=== PATIENT | male | born 1965 ===

== ENCOUNTER → 2019-04-12 | Outpatient (CLI) | payer OTHER ==
[~2019-04-12] VITALS: Ht 182.9 cm; Wt 102.1 kg
[~2019-04-12] MED LIST: ADVIL PM CAPLE1 EACH PO; ADVIL PM LIQUI1 EACH; CBD oil PO
--- NOTE | ~2019-04-12 | HPC ---
[facility] [place] [address] PAIN MANAGEMENT CONSULTATION Name: JOSÉ MIGUEL REGAN Room #: REG RIMA AhmadiFabi#: [id number] Admission: 04/12/19 Attend Phys: Nirmal Collazo MD Discharge: Date of : 61 Report #: [id number] THIS REPORT FOR: //name// CC: FRANCISCO J Collazo DATE OF SERVICE: 04/12/2019 CHIEF COMPLAINT: Cervical pain with radiation into the right arm. HISTORY OF PRESENT ILLNESS: This is a pleasant 53-year-old. Dr. Sarkar was asked me to see today for cervical radiculopathy. He describes the pain in his own words as a pinched nerve in the neck. This results in right-sided pain of his neck, shoulder and numbness into the right arm. Pain has been present for about a year. It progressively worsened over the course of the spring and early summer. He was started on meloxicam. He saw Dr. Queen, who recommended physical therapy. It initially helped and he was doing better, doing exercises on his own at home. He then had to discontinue the physical therapy oversight, but was getting along pretty well. In early March at a judaism function, he was loading pumpkins from a truck and began experiencing pain again and it is now worse and bothers him on a daily basis. He scores it as a 5/10 on a day-to-day activity and with increased activity the pain is a 7/10. It is a constant, aching, crushing sensation and it radiates from his neck through his arm into the forearm following the C5-C6 distribution. Dr. Sarkar ordered an MRI scan, which was performed on 03/01/2019. I reviewed the report, but did not have the images. The report suggests that there is a right eccentric disk bulge/protrusion at C4-C5 and C5-C6 with mild right eccentric canal narrowing and moderate right foraminal narrowing at C4-C5 and C5-C6. This would be consistent and concordant with his cervical radicular symptoms. MEDICATIONS: None. PAST MEDICAL HISTORY: Negative for health issues. He has had some orthopedic surgeries, bone spur on his knee in 1979 and a torn meniscus in 2004. In the distant past, he had a tonsillectomy in 1974. REVIEW OF SYSTEMS: Negative other than symptoms related to the history of present illness. SOCIAL HISTORY: Denies tobacco, drinks alcohol, 4-5 beverages per week in a social setting. He does not use any illicit drugs or marijuana. 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 He has children, grandchildren and his daughter is with twins. 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 [employer] [address] [address] PAIN MANAGEMENT CONSULTATION Name: JOSÉ MIGUEL REGAN Room #: REG RIMA Beck#: [id number] Admission: 04/12/19 Attend Phys: Nirmal Collazo MD Discharge: Date of : 61 Report #: [id number] pain score is highest for enjoyment of life 7/10. Total score is 23/70. PHYSICAL EXAMINATION: GENERAL: He is a very pleasant, outgoing 53-year-old, he is 6 feet 1 inches, 225 pounds with a BMI of 30.5. VITAL SIGNS: Blood pressure is 133/95, heart rate 70, respirations 16, O2 sat 97. Pain intensity 4/10. Moves independently from sitting to standing position, ambulates without any antalgic features. HEENT: Normal. NECK: Supple. He has some pain with neck extension. CHEST: Clear to auscultation. CARDIAC: Rhythm is regular with no audible murmur. MUSCULOSKELETAL: Examination of the musculoskeletal system reveals cervical range of motion has noted to be fairly normal. No restrictions by pain or muscle spasm. He has some myofascial tender points within the cervical spine posteriorly on the right. Range of motion of the shoulders is good. Minimal tenderness. Deep tendon reflexes are diminished at the biceps on the right in comparison to the left, triceps and brachioradialis reflexes are normal. Deep tendon reflexes in lower extremity are also normal. Sensation exam reveals some mild numbness throughout the upper part of the arm in the C5-C6 distribution. I could not ascertain any focal weakness and muscle testing. IMPRESSION: Cervical radiculopathy related to MRI evidence of right cervical disk protrusion, likely causing some irritation of nerve roots in the lateral recess. RECOMMENDATION: I think he is an excellent candidate for an epidural steroid injection and referred him for preauthorization. We will bring him back to the clinic at our earliest mutual convenience for the epidural injection. We talked about long-term prognosis, which I think is favorable, I think that this will continue to improve over time. The epidural may certainly play some role in reducing his pain and improving his day-to-day function by eliminating the pain generator. Followup visit planned within the next week for cervical epidural injection. By: [id number] Nirmal Collazo MD /nt
[2019-04-12 14:01] VITALS: BP 133/95
--- NOTE | 2019-04-12 14:26 | NUR ---
Pain Clinic Assessment: 1. History of Osteoarthritis: CERVICAL SPINE History of Rheumatoid Arthritis: Not Applicable 2. Height: 6 ft. 1 in. 182.9 cm. Weight: 225.0 lb. oz. 102.060 kg. Patient's BMI: 30.5 3. Vital Signs: BP: 133/95 Pulse: 70 Resp: 16 Temp: 02 Sat: 97 ECG Mon: 4. Pain Intensity: 4 5. Fall Risk: Dizziness: N Needs help standing or walking: N Fallen in the last 3 months: N Fall risk comments: 6. Patient on Blood Thinner: None 7. History of Hypertension: N 8. Opioid Therapy greater than 6 weeks: Opiate Contract Signed: 9. Risk Assessment Tool Provided: 10. Functional Assessment Tool: 11. Recreational Drug Use: Never Drug Type: Tobacco Use: Never Smoker Tobacco Type: Amount or Packs/day: How Many Years: Alcohol Use: Yes Frequency: Weekly Quant: 5 DRINKS
== END ==
LOC: PAIN 06:53
DX: M54.12 Radiculopathy, cervical region (principal); Z79.899 Other long term (current) drug therapy; Z88.8 Allergy status to other drugs, medicaments and biological substances

== ENCOUNTER → 2019-04-23 | Outpatient (CLI) | payer OTHER ==
[~2019-04-23] VITALS: Ht 185.4 cm; Wt 106.2 kg
[2019-04-23 08:15] VITALS: BP 139/94
--- NOTE | 2019-04-23 08:25 | NUR ---
Pain Clinic Assessment: 1. History of Osteoarthritis: CERVICAL SPINE History of Rheumatoid Arthritis: Not Applicable 2. Height: 6 ft. 1 in. 185.4 cm. Weight: 234.2 lb. oz. 106.233 kg. Patient's BMI: 30.9 3. Vital Signs: BP: 139/94 Pulse: 85 Resp: 18 Temp: 02 Sat: 97 ECG Mon: 4. Pain Intensity: 2-3 5. Fall Risk: Dizziness: N Needs help standing or walking: N Fallen in the last 3 months: N Fall risk comments: 6. Patient on Blood Thinner: None 7. History of Hypertension: N 8. Opioid Therapy greater than 6 weeks: N Opiate Contract Signed: 9. Risk Assessment Tool Provided: 10. Functional Assessment Tool: 11. Recreational Drug Use: Never Drug Type: Tobacco Use: Never Smoker Tobacco Type: Amount or Packs/day: How Many Years: Alcohol Use: Yes Frequency: Weekly Quant: 5/week
--- NOTE | 2019-04-30 12:21 | HPC ---
[facility] [place] [address] PAIN MANAGEMENT CONSULTATION Name: JOSÉ MIGUEL REGAN Room #: REG RIMA Galdino.#: [id number] Admission: 04/23/19 Attend Phys: Nirmal Collazo MD Discharge: Date of : 61 Report #: [id number] THIS REPORT FOR: //name// CC: FRANCISCO J Collazo PROCEDURE: Cervical epidural injection under fluoroscopic guidance. DIAGNOSES: Cervical radiculopathy, right C6-C7 distribution. INDICATION FOR PROCEDURE: The patient was seen 1 week ago. He has classic symptoms of cervical radiculopathy. He has attempted conservative measures without success and is here today for a cervical epidural injection discussed. Potential risks and benefits discussed. He is anxious to proceed. PROCEDURE PERFORMED: Cervical epidural steroid injection, C7-T1. DESCRIPTION OF PROCEDURE: After informed consent, he was taken to the fluoroscopic suite, placed prone, skin prepped with ChloraPrep. Skin anesthetized over C6-C7 initially. A 20-gauge Tuohy epidural needle was advanced towards the epidural space using saline for loss of resistance. I was encountering softness throughout the entire procedure and the needle was at significant depth before I decided to move to C7-T1. I was concerned that I had not encountered the ligamentum flavum by nearly 3 inches in this relatively slender gentleman. Dye had been injected a couple of times. We were posterior to the epidural space. I felt it safer to move down 1 level. Skin was then anesthetized and the 20-gauge Tuohy epidural needle was advanced into the epidural space using loss of resistance at that level. It was deeper than anticipated. I injected 0.25 mL of Omnipaque and an excellent epidurogram was achieved, extending cephalad and bilaterally. I then injected 3 mL of 0.5% lidocaine and 60 mg of triamcinolone. He tolerated the procedure well. He was in the recovery room at time of dictation. There were no apparent complications. Followup visit is planned as needed. <ELECTRONICALLY SIGNED> By: Nirmal Collazo MD 04/30/19 1221 [id number] Nirmal Collazo MD /nt
== END | disposition home or self-care (01) ==
LOC: PAIN 06:46
DX: M54.12 Radiculopathy, cervical region (principal)

== ENCOUNTER → 2019-06-28 | Outpatient (CLI) | payer OTHER | LOC: CAT 08:10 | DX: Z13.6 Encounter for screening for cardiovascular disorders (principal); I25.10 Atherosclerotic heart disease of native coronary artery without angina pectoris; E78.00 Pure hypercholesterolemia, unspecified ==

== ENCOUNTER → 2019-07-13 | Outpatient (CLI) | payer BC, OTHER | LOC: SJCVCIMAG 09:28 | DX: I36.1 Nonrheumatic tricuspid (valve) insufficiency (principal); I10 Essential (primary) hypertension; E78.5 Hyperlipidemia, unspecified ==

== ENCOUNTER → 2019-10-04 | Outpatient (CLI) | payer BC, OTHER ==
[~2019-10-04] VITALS: Ht 185.4 cm; Wt 98.1 kg
[~2019-10-04] MED LIST changes: +ADVIL200 M3 PO; +CRESTOR10 MG PO; +IRBESARTAN300 MG PO; +MELATONIN5 MG SUBLING
[2019-10-04 13:10] VITALS: BP 113/84
--- NOTE | 2019-10-04 13:44 | NUR ---
Pain Clinic Assessment: 1. History of Osteoarthritis: CERVICAL SPINE History of Rheumatoid Arthritis: Not Applicable 2. Height: 6 ft. 1 in. 185.4 cm. Weight: 216.2 lb. oz. 98.068 kg. Patient's BMI: 28.5 3. Vital Signs: BP: 113/84 Pulse: 62 Resp: 14 Temp: 02 Sat: 97 ECG Mon: 4. Pain Intensity: 3 5. Fall Risk: Dizziness: N Needs help standing or walking: N Fallen in the last 3 months: N Fall risk comments: 6. Patient on Blood Thinner: None 7. History of Hypertension: Y 8. Opioid Therapy greater than 6 weeks: N Opiate Contract Signed: 9. Risk Assessment Tool Provided: 0-low risk 10. Functional Assessment Tool: 11. Recreational Drug Use: Never Drug Type: Tobacco Use: Never Smoker Tobacco Type: Amount or Packs/day: How Many Years: Alcohol Use: Yes Frequency: Daily Quant: beer or wine x 1
--- NOTE | 2019-10-18 12:16 | HPC ---
[facility] [place] [address] PAIN MANAGEMENT CONSULTATION Name: JOSÉ MIGUEL REGAN Room #: REG RIMA AhmadiFabi#: [id number] Admission: 10/04/19 Attend Phys: Nirmal Collazo MD Discharge: Date of : 61 Report #: [id number] THIS REPORT FOR: cc: Omkar Sarkar II, MD, II,Omkar Collazo,Nirmal Yee MD ~ CC: Omkar Collazo DATE OF SERVICE: 10/04/2019 Followup visit for cervical radiculopathy. The patient was here in April and received a cervical epidural injection, which provided 75-80% pain relief for many months. Pain is now returning, and would like another injection. We reviewed his last treatment. I started at C6-C7, but the needle was so deep nearly close to the hub of the needle that I felt uncomfortable. I had not encountered the ligamentum flavum. I injected dye and did some lateral views and then ultimately elected to inject him at C7-T1, which is effective. We decided that today we would also perform the injection at C7-T1. Given his good response. He describes the pain is fairly constant tingling and aching pain that radiates into his right shoulder. Intensity of pain is 3, but can be worse depending on heavy physical activity, looking down into the right, mowing his yard also aggravates pain. He has tried CBD oil and has had some success with chiropractic manipulations as well. PHYSICAL EXAMINATION: GENERAL: Pleasant 54-year-old. VITAL SIGNS: His blood pressure is 113/84, heart rate is 62. He moves independently from sitting to standing position. His gait is nonantalgic. He has no spasticity features. MUSCULOSKELETAL: Cervical range of motion is basically within normal limits. He has some increasing pain with neck extension. Strength and sensation are normal in the upper extremities. IMPRESSION: Cervical radiculopathy. RECOMMENDATION: Cervical epidural injection under fluoroscopic guidance, C7-T1. DESCRIPTION OF PROCEDURE: After informed consent, he was taken to the [address] [address] PAIN MANAGEMENT CONSULTATION Name: JOSÉ MIGUEL REGAN Room #: REG [facility] Galdino.#: [id number] Admission: 10/04/19 Attend Phys: Nirmal Collazo MD Discharge: Date of : 61 Report #: [id number] fluoroscopic suite, placed prone, skin prepped with ChloraPrep. Skin anesthetized over C7-T1. A 20-gauge Tuohy epidural needle advanced to first attempt into the epidural space with loss of resistance technique. There was no blood or CSF aspirated. A 1 mL of Omnipaque was injected and excellent epidurogram was achieved medicine was seen extend both cephalad and caudad from the tip of the needle. I then injected 3 mL of 0.5% lidocaine mixed with 40 mg of triamcinolone. He tolerated the procedure well. There were no complications. I should make note that the depth of his epidural space is deeper than anticipated. I had roughly 1 cm of the needle remaining to the hub at the time of encountering the epidural space. Followup visit planned only for p.r.n. injections. We do not advocate a series of injections for this condition. <ELECTRONICALLY SIGNED> By: Nirmal Collazo MD 10/18/19 1216 [id number] [id number] Nirmal Collazo MD /nt
== END | disposition home or self-care (01) ==
LOC: PAIN 06:59
PROVIDERS: ATTEND Anesthesiology Pain Medicine
DX: M54.12 Radiculopathy, cervical region (principal); G89.29 Other chronic pain; Z98.890 Other specified postprocedural states; Z79.899 Other long term (current) drug therapy